=== PATIENT | female | born 1990 | race Caucasian/White ===

== ENCOUNTER 2017-10-10 23:22 | Inpatient (IN) | payer BC ==
[2017-10-11] MEDS ORDERED: Nalbuphine* 20 MG/ML 1 ML VIAL IM ONE (01:11)
[2017-10-11] MEDS ORDERED: Promethazine INJ(RESTRICTED)* 25 MG/ML 1 ML VIAL IM ONE (01:13)
[2017-10-11 09:39] LABS: ABS Basophils 0.1 10^3/ul (0-0.2); ABS Eosinophils 0 10^3/ul (0-0.6); ABS Lymphocytes 1.2 10^3/ul (1.0-4.8); ABS Monocytes 0.4 10^3/ul (0-0.8); ABS Neutrophils 8.6 10^3/ul (1.5-7.7); ABS Nucleated RBC 0 10^3/ul; Eosinophil % 0.3 % (0-6); Hematocrit 30 % (35-47); Hemoglobin 9.9 g/dl (12.0-16.0); Lymphocyte % 11.3 % (25-47); Mean Corpuscular HGB Conc 34 g/dl (31-36); Mean Corpuscular Hemoglobin 29 pg (27-31); Mean Corpuscular Volume 87 fL (80-97); Mean Platelet Volume 8 um3 (7.4-10.4); Nucleated Red Blood Cells % 0.1; Platelet Count 318 10^3/ul (150-450); Red Blood Count 3.39 10^6/ul (4.0-5.4); Red Cell Distribution Width 13 % (10.5-15); White Blood Count 10.3 10^3/ul (3.5-10.8)
[2017-10-11] MEDS ORDERED: OBEPIDURAL* 250 ML EPIDURAL ONE (13:37)
[2017-10-11] MEDS ORDERED: Famotidine TAB* 20 MG PO PRN (14:33)
[2017-10-11] MEDS ORDERED: EPHEDrine (Pressors)* 50 MG/ML VIAL IV PUSH PRN ×2 (14:33)
[2017-10-11] MEDS ORDERED: Phenylephrine IV* 40 MCG/ML 10 ML SYRINGE IV PUSH PRN ×2 (14:33)
[2017-10-11] MEDS ORDERED: Sodium Citrate/Citric Acid* 15 ML UDC PO PRN (14:33)
[2017-10-11] MEDS ORDERED: Ondansetron INJ* 2 MG/ML VIAL IV ONE (14:57)
[2017-10-11] MEDS ORDERED: OBEPIDURAL* 250 ML EPIDURAL SCH (15:00)
[2017-10-11] MEDS ORDERED: Oxytocin in LR* 20 UNITS/1,000 ML BAG IVPB ONE (18:37)
[2017-10-11] MEDS ORDERED: Oxytocin in LR* 20 UNITS/1,000 ML BAG IVPB SCH ×2 (19:00→22:25)
[2017-10-11] MEDS ORDERED: Ibuprofen TAB* 600 MG ONE (22:17)
[2017-10-11] MEDS ORDERED: Glycerin ADULT SUPP PR PRN (22:21)
[2017-10-11] MEDS ORDERED: Dibucaine 1% 28.35 GM TUBE PR PRN (22:21)
[2017-10-11] MEDS ORDERED: Witch Hazel PAD* JAR TOPICAL PRN (22:21)
[2017-10-11] MEDS ORDERED: Acetaminophen TAB* 325 MG PO PRN (22:21)
[2017-10-12 07:37] LABS: Hematocrit 25 % (35-47); Hemoglobin 8.4 g/dl (12.0-16.0); Mean Corpuscular HGB Conc 33 g/dl (31-36); Mean Corpuscular Hemoglobin 29 pg (27-31); Mean Corpuscular Volume 86 fL (80-97); Mean Platelet Volume 8 um3 (7.4-10.4); Platelet Count 298 10^3/ul (150-450); Red Blood Count 2.94 10^6/ul (4.0-5.4); Red Cell Distribution Width 13 % (10.5-15); White Blood Count 17.3 10^3/ul (3.5-10.8)
[2017-10-12] MEDS: Docusate CAP* 100 MG PO SCH ×3 (08:04→20:48)
[2017-10-12] MEDS: Ibuprofen TAB* 600 MG PO PRN ×3 (08:04→20:48)
[2017-10-12] MEDS: Ferrous Gluconate TAB* 324 MG TAB PO SCH ×2 (08:10→20:47)
--- NOTE | 2017-10-12 20:27 | PTEDU ---
Patient Name: LUIS STOLL LUIS STOLL selected video: Never Ever Shake a Baby to view on 10/12/2017 at 8:26:30 PM from [email or web address] [id number]
--- NOTE | 2017-10-12 20:36 | PTEDU ---
Patient Name: LUIS STOLL LUIS STOLL selected video: BBOB: Nurturing Your Gorgeous &Growing Baby by to view o n 10/12/2017 at 8:35:22 PM from [email or web address]
--- NOTE | 2017-10-12 21:18 | PTEDU ---
Patient Name: LUIS STOLL LUIS STOLL selected video: BBOB: Bonding Through Massage to view on 10/12/2017 at 9:17:52 PM from [id number]
[2017-10-13 08:27] VITALS: BP 122/77
[2017-10-13] MEDS: Ibuprofen TAB* 600 MG PO PRN (08:57)
[2017-10-13] MEDS: Ferrous Gluconate TAB* 324 MG TAB PO SCH (08:57)
[2017-10-13] MEDS: Docusate CAP* 100 MG PO SCH (08:57)
== END 2017-10-13 11:51 | disposition home or self-care (01) | DRG 560 ==
LOC: MCHOBOUT 23:22 → MCHOB 10-11 00:24
PROVIDERS: ADMIT Midwife; ATTEND Midwife
PROC: 10E0XZZ Delivery of Products of Conception, External Approach (ICD-10-PCS; principal; 2017-10-11)
PROC: 10907ZC Drainage of Amniotic Fluid, Therapeutic from Products of Conception, Via Natural or Artificial Opening (ICD-10-PCS; 2017-10-11)
PROC: 4A1HXCZ Monitoring of Products of Conception, Cardiac Rate, External Approach (ICD-10-PCS; 2017-10-11)
PROC: 0KQM0ZZ Repair Perineum Muscle, Open Approach (ICD-10-PCS; 2017-10-11)
DX: O69.1XX0 Labor and delivery complicated by cord around neck, with compression, not applicable or unspecified (principal); O42.12 Full-term premature rupture of membranes, onset of labor more than 24 hours following rupture; O69.2XX0 Labor and delivery complicated by other cord entanglement, with compression, not applicable or unspecified; Z3A.39 39 weeks gestation of pregnancy; Z37.0 Single live birth; Z87.442 Personal history of urinary calculi; O70.1 Second degree perineal laceration during delivery; O90.81 Anemia of the puerperium; R11.0 Nausea; O75.89 Other specified complications of labor and delivery
CPT/HCPCS: 36415; 84112; 85025; 85027; 86850; 86900; 86901; A9270-GY; J2300; J2405; J2550

== ENCOUNTER 2019-11-23 11:32 | Inpatient (IN) | payer BC ==
[2019-11-23] MEDS ORDERED: Buffered Lidocaine 1% SYRIN* 1 ML/SYRINGE INTRADERM ONE (12:42)
[2019-11-23] MEDS ORDERED: Lactated Ringers 1000 ML Bag* 1,000 ML IV ONE ×2 (12:42→18:14)
--- NOTE | 2019-11-23 12:49 | HP ---
General Information - Reason for Visit 29yo, , IUP@40+5 here for an IOL - General Information Maternal Age: 27 Grav: 1 Para: 0 SAB: 0 IEA: 0 Estimated Due Date: 10/12/17 Determined By: LMP Gestational Age in Weeks/Days: 40+5 Maternal Blood Type and Rh: O Positive - Results this Serology/RPR Result: Non-Reactive Rubella Result: Immune HBsAg Result: Negative HIV Result: Negative GBS Culture Result: Negative Past Medical History Delivery History: Hx Uncomplicated Vaginal Delivery Pertinent Past Medical History: See Records Past Medical History Comment: Ruptured ovarian cyst Anxiety Psoriasis Kidney stones Allergies Past Surgical History Comment: Cholecystectomy (2018) Family History Comment: Father: cardiac disease mother: CHF, diabetes PGM: [place] PGF: [place] MGM: alzheimer's MGF: lung cancer - Antepartal Records Antepartal Records: Reviewed, Complicated by: - hyperemesis, mild anemia Review of Systems Constitutional: Comfortable CV Complaint: No Respiratory: Shortness of Breath: No Gastrointestinal: No Nausea/Vomiting Genitourinary: No Dysuria, No Bleeding, No Leaking Fluid Musculoskeletal: No Complaint, No Epigastric Pain Neurological: No Headache Movement: Normal Exam Allergies/Adverse Reactions: Allergies MS Red Dye [Red Dye] Allergy (Verified 10/11/17 00:54) GI Upset temp 98.2, HR 89, RR 18, BP 123/73, O2 100% - Measurements Height: 5 ft 2 in Weight: 216 lb Body Mass Index (BMI): 39.4 Pre- Weight: 211 lb - Exam Breast: Breast Exam Deferred CVA: No CVA Tenderness Extremities: No Edema Heart: Normal Rhythm/Heart Sounds HEENT: No Significant Findings Lungs: Clear Bilaterally Rectal: Rectal Exam Deferred Reflexes: DTR 2+ Thyroid: No Thyromegaly - Abdominal Exam Abdomen Exam: Non-Tender - Ultrasound/Biophysical Profile Ultrasound Status: Not Done Targeted Exam Findings Estimated Weight: 8lb Cervical Exam: 2cm Effacement: 60% Station: -1 Presenting Part: Vertex Membrane Status: Intact Bleeding/Discharge: None EFM Findings - External Monitor Findings Baseline Heart Rate: 140 External Monitor Findings: Accelerations Present, No Pattern of Variable or Late Decelerations, Variability Moderate External Monitor Findings Comment: No evidence of metabolic acidemia Contractions: None Assessment/Plan - Assessment at 40+5 here for an IOL GBS negative, RI, O+ complicated by hyperemesis and anemia No evidence of metabolic acidemia Not in labor - Plan Plan: Admit - Anticipate Vaginal Delivery Plan Comment: PARQ discussion about AROM and start Pitocin. Pt and in agreement with plan. Pt to ambulate in halls, have lunch, then start induction. Anticipate progression to active labor and .
[2019-11-23] MEDS ORDERED: Lactated Ringers 1000 ML Bag* 1,000 ML IV SCH ×3 (13:00→23:00)
[2019-11-23] MEDS ORDERED: Oxytocin in LR* 20 UNITS/1,000 ML BAG IVPB SCH (13:00)
[2019-11-23 14:32] LABS: ABS Lymphocytes 1.6 10^3/ul (1.0-4.8); ABS Monocytes 0.3 10^3/ul (0-0.8); ABS Neutrophils 6.1 10^3/ul (1.5-7.7); Eosinophil % 0.6 %; Hematocrit 30 % (35-47); Hemoglobin 10.4 g/dL (12.0-16.0); Lymphocyte % 19.6 %; Mean Corpuscular HGB Conc 35 g/dL (31-36); Mean Corpuscular Hemoglobin 30 pg (27-31); Mean Corpuscular Volume 85 fL (80-97); Platelet Count 246 10^3/uL (150-450); Red Blood Count 3.52 10^6 /uL (3.70-4.87); Red Cell Distribution Width 14 % (10-15); White Blood Count 8.1 10^3/uL (3.5-10.8)
--- NOTE | 2019-11-23 14:42 | PN ---
Progress Note - Progress Note Date of Service: 11/23/19 Note: S: Pt is resting in bed. Ready for AROM. Denies feeling contractions. Active FM. O: FHR 130, moderate variability, +accels, no decels Contractions: q6mins, palpate mild VE: 3.5/60/-1, AROM, scant amount, clear fluid A: IUP@40+5 Not in active labor Cat I tracing - no evidence of metabolic acidemia Irregular contractions P: Titrate low dose pitocin as tolerated Anticipate progression to active labor and
[2019-11-23 15:59] LABS: Urine Benzodiazepine Screen None Detected (None Detect); Urine Opiates Screen None Detected (None Detect)
[2019-11-23] MEDS ORDERED: OBEPIDURAL* 250 ML EPIDURAL ONE (17:45)
[2019-11-23] MEDS ORDERED: Bupivacaine 0.25% SDV PF* 10 ML VIAL INJ ONE (17:52)
[2019-11-23] MEDS ORDERED: Sodium Citrate/Citric Acid* 15 ML UDC PO PRN (18:14)
[2019-11-23] MEDS ORDERED: Famotidine TAB* 20 MG PO PRN (18:14)
[2019-11-23] MEDS ORDERED: Phenylephrine 40 MCG/ML SYRINGE IV PUSH PRN ×2 (18:14)
[2019-11-23] MEDS ORDERED: OBEPIDURAL* 250 ML EPIDURAL SCH (19:00)
--- NOTE | 2019-11-23 20:04 | PN ---
Progress Note - Progress Note Date of Service: 11/23/19 Note: S: Pt is breathing through contractions. Very uncomfortable with contractions. Requesting an epidural. O: FHR 120, moderate variability, +accels, no decels Contractions: q2-3mins, palpate moderate VE: 4.5/70/-1, clear fluid Pit@4mU A: IUP@40+5 Not in active labor Cat I tracing - no evidence of metabolic acidemia Regular contractions P: Epidural now Anesthesia aware Anticipate progression to
--- NOTE | 2019-11-23 20:14 | PN ---
Progress Note - Progress Note Date of Service: 11/23/19 Note: Pt is comfortable with epidural Denies feeling pressure/urge to push Temp 97, afebrile Cat I FHR - no evidence of metabolic acidemia Contractions q2-4; Pitocin@8mU Titrate Pitocin as tolerated by mom and baby VE deferred as pt is ruptured; VE prn Anticipate progression to complete/complete and
[2019-11-23] MEDS ORDERED: Glycerin ADULT SUPP PR PRN (22:20)
[2019-11-23] MEDS ORDERED: Lidocaine 1% INJ* 10 MG/ML 30 ML SDV ONE (22:20)
--- NOTE | 2019-11-23 22:24 | PROCNOTE ---
[facility] OB: Delivery Note - Nursery Level of Nursery: Regular/Bedside - Perineum Perineal Injury: 1st Degree Perineal Repair: By Delivering Practioner - Events Delivery Events of Note: Pitocin During Labor - Additional Delivery Notes Additional Delivery Notes: Normal spontaneous vertex delivery of live male, Apgars 6/9. Delivered left occipital-anterior (MARA), with compound arm. Body delivered without difficulty. Baby placed on mothers abdomen. Cord clamped and cut by FOB after pulsations ceased. Pitocin given via IVPB for active management of 3rd stage. Placenta delivered spontaneously via [place], appears intact, 3vc. Perineum and vagina inspected - a first degree laceration noted. Repaired in the usual fashion, with CEI infusing, under 1% lidocaine. Anatomy restored; laceration hemostatic. EBL 400mL. Mom and baby stable at time of note. Baby attempting to breastfeed.
[2019-11-23] MEDS: Witch Hazel PAD* JAR TOPICAL PRN (23:29)
[2019-11-23] MEDS: Dibucaine 1% 28.35 GM TUBE PR PRN (23:29)
[2019-11-23] MEDS: Ibuprofen TAB* 600 MG PO SCH (23:29)
[2019-11-23] MEDS ORDERED: Ammonia Inhalant* 1 EA AMP ONE (23:53)
[2019-11-24] MEDS: Oxytocin in LR* 20 UNITS/1,000 ML BAG IVPB SCH ×2 (06:30→07:54)
[2019-11-24 06:41] LABS: ABS Lymphocytes 1.5 10^3/ul (1.0-4.8); ABS Monocytes 0.5 10^3/ul (0-0.8); ABS Neutrophils 9.9 10^3/ul (1.5-7.7); Eosinophil % 0.2 %; Hematocrit 25 % (35-47); Hemoglobin 8.7 g/dL (12.0-16.0); Lymphocyte % 12.9 %; Mean Corpuscular HGB Conc 34 g/dL (31-36); Mean Corpuscular Hemoglobin 29 pg (27-31); Mean Corpuscular Volume 85 fL (80-97); Mean Platelet Volume 8.7 fL (7.4-10.4); Platelet Count 231 10^3/uL (150-450); Red Blood Count 2.99 10^6 /uL (3.70-4.87); Red Cell Distribution Width 14 % (10-15)
[2019-11-24] MEDS ORDERED: Methylergonovine INJ* 0.2 MG/ML 1ML AMP ONE (07:11)
[2019-11-24] MEDS ORDERED: fentaNYL* 50 MCG/ML 2 ML VIAL (100 MCG VIAL) ONE (07:22)
[2019-11-24] MEDS ORDERED: Misoprostol TAB* 200 MCG ONE (07:54)
[2019-11-24] MEDS ORDERED: Methylergonovine INJ* 0.2 MG/ML 1ML AMP IM ONE (08:00)
[2019-11-24] MEDS ORDERED: fentaNYL* 50 MCG/ML 2 ML VIAL (100 MCG VIAL) IV SLOW PU ONE (08:12)
[2019-11-24] MEDS ORDERED: Ampicillin ADVAN(*) 2 GM in NS 0.9% 100 ML* 100 ML IVPB ONE (08:18)
[2019-11-24] MEDS ORDERED: Simethicone TAB* 80 MG TAB.CHEW PO SCH (08:30)
[2019-11-24] MEDS ORDERED: Misoprostol TAB* 100 MCG ONE (09:00)
[2019-11-24] MEDS: Ibuprofen TAB* 600 MG PO SCH ×3 (09:45→20:44)
[2019-11-24] MEDS: Ferrous Gluconate TAB* 324 MG TAB PO SCH ×2 (09:45→20:44)
[2019-11-24] MEDS: Docusate CAP* 100 MG PO SCH ×3 (09:45→20:44)
[2019-11-24 10:32] LABS: ABS Lymphocytes 1.5 10^3/ul (1.0-4.8); ABS Monocytes 0.5 10^3/ul (0-0.8); ABS Neutrophils 10.8 10^3/ul (1.5-7.7); Eosinophil % 0.2 %; Hematocrit 25 % (35-47); Hemoglobin 8.5 g/dL (12.0-16.0); Lymphocyte % 11.5 %; Mean Corpuscular HGB Conc 34 g/dL (31-36); Mean Corpuscular Hemoglobin 29 pg (27-31); Mean Corpuscular Volume 85 fL (80-97); Mean Platelet Volume 8.8 fL (7.4-10.4); Platelet Count 252 10^3/uL (150-450); Red Blood Count 2.98 10^6 /uL (3.70-4.87); Red Cell Distribution Width 14 % (10-15); White Blood Count 12.9 10^3/uL (3.5-10.8)
--- NOTE | 2019-11-24 20:15 | PN ---
Progress Note - Progress Note Date of Service: 11/24/19 Note: Called by RN, notified that pt had 2 large gushes of vaginal bleeding with clots. Bleeding reported as an ongoing trickle, assured pt stable. Instructed to resume pitocin and give methergine prn until provider arrival. On assessment , fundus was noted to be firm, but mildly tender to massage/palpation. Small amount of bleeding noted. VSS, pt alert and calm. Pitocin infusing, one dose of methergine given. Explained to pt need to do internal exam to determine source of bleeding. Pt in agreement with plan. Fentanyl, 50mcg was given via slow IVP. On exam lower uterine segment noted to be boggy. Several fist-size clots were removed. Lower uterine segment massaged until firm. Bleeding ceased. Plan for repeat CBC and single dose of ampicillin. EBL calculated to be 1200mL. Ang Faria MD notified and aware of pt status.
[2019-11-24] MEDS: Dibucaine 1% 28.35 GM TUBE PR PRN (20:46)
[2019-11-25 06:23] LABS: ABS Eosinophils 0.2 10^3/ul (0-0.6); ABS Lymphocytes 2.1 10^3/ul (1.0-4.8); ABS Monocytes 0.5 10^3/ul (0-0.8); ABS Neutrophils 6.8 10^3/ul (1.5-7.7); Hematocrit 20 % (35-47); Hemoglobin 6.7 g/dL (12.0-16.0); Lymphocyte % 21.8 %; Mean Corpuscular HGB Conc 34 g/dL (31-36); Mean Corpuscular Hemoglobin 30 pg (27-31); Mean Corpuscular Volume 86 fL (80-97); Mean Platelet Volume 8.1 fL (7.4-10.4); Nucleated Red Blood Cells % 0.1; Platelet Count 223 10^3/uL (150-450); Red Blood Count 2.29 10^6 /uL (3.70-4.87); Red Cell Distribution Width 14 % (10-15); White Blood Count 9.7 10^3/uL (3.5-10.8)
[2019-11-25] MEDS: Ibuprofen TAB* 600 MG PO SCH (06:23)
[2019-11-25] MEDS: Acetaminophen TAB* 325 MG PO PRN ×3 (08:22→22:10)
[2019-11-25] MEDS: Docusate CAP* 100 MG PO SCH ×3 (08:23→22:07)
[2019-11-25] MEDS: Ferrous Gluconate TAB* 324 MG TAB PO SCH ×2 (08:23→22:07)
--- NOTE | 2019-11-25 10:32 | PN ---
Progress Note - Progress Note Date of Service: 11/25/19 Note: Pt is S/P on 11/22 with hemorrhage <12 hours later. Total blood loss estimated to be >1000mL. H/H this morning is 6.7. On assessment, FF@U, scant lochia rubra. VSS - temp 98.2, BP 128/86, HR 80, RR 16. Pt asymptomatic - denies dizziness, weakness, SOB, difficulty ambulating. Voiding/stooling without difficulty. Breasts soft non-tender - baby breast feeding well. Recommend blood transfusion - 2 units of PRBC given hgb <7. PARQ discussion about blood transfusion with pt and . Educational handout given and consent signed. Pt and in agreement with plan. Repeat CBC 4 hours following transfusion. Ang Faria MD consulted, aware of pt status, and in agreement with plan.
[2019-11-25 20:23] LABS: ABS Eosinophils 0.2 10^3/ul (0-0.6); ABS Lymphocytes 2.1 10^3/ul (1.0-4.8); ABS Monocytes 0.6 10^3/ul (0-0.8); Hematocrit 26 % (35-47); Hemoglobin 8.8 g/dL (12.0-16.0); Lymphocyte % 18.9 %; Mean Corpuscular HGB Conc 34 g/dL (31-36); Mean Corpuscular Hemoglobin 29 pg (27-31); Mean Corpuscular Volume 87 fL (80-97); Mean Platelet Volume 8.5 fL (7.4-10.4); Platelet Count 264 10^3/uL (150-450); Red Blood Count 3.01 10^6 /uL (3.70-4.87); Red Cell Distribution Width 14 % (10-15); White Blood Count 10.9 10^3/uL (3.5-10.8)
[2019-11-26 07:33] VITALS: BP 110/65
[2019-11-26] MEDS: Ferrous Gluconate TAB* 324 MG TAB PO SCH (08:24)
[2019-11-26] MEDS: Docusate CAP* 100 MG PO SCH ×2 (08:24→12:58)
[2019-11-26] MEDS: Dibucaine 1% 28.35 GM TUBE PR PRN (16:20)
[2019-11-26] MEDS: Witch Hazel PAD* JAR TOPICAL PRN (16:20)
== END 2019-11-26 16:35 | disposition home or self-care (01) | DRG 560 ==
LOC: MCHOBOUT 11:32 → MCHOB 13:19
PROVIDERS: ADMIT Advanced Practice Midwife; ATTEND Advanced Practice Midwife
PROC: 10E0XZZ Delivery of Products of Conception, External Approach (ICD-10-PCS; principal; 2019-11-23)
PROC: 30233N1 Transfusion of Nonautologous Red Blood Cells into Peripheral Vein, Percutaneous Approach (ICD-10-PCS; 2019-11-23)
PROC: 10907ZC Drainage of Amniotic Fluid, Therapeutic from Products of Conception, Via Natural or Artificial Opening (ICD-10-PCS; 2019-11-23)
PROC: 3E033VJ Introduction of Other Hormone into Peripheral Vein, Percutaneous Approach (ICD-10-PCS; 2019-11-23)
PROC: 4A1HXCZ Monitoring of Products of Conception, Cardiac Rate, External Approach (ICD-10-PCS; 2019-11-23)
PROC: 0HQ9XZZ Repair Perineum Skin, External Approach (ICD-10-PCS; 2019-11-23)
DX: O48.0 Post-term pregnancy (principal); O72.1 Other immediate postpartum hemorrhage; Z37.0 Single live birth; D62 Acute posthemorrhagic anemia; O70.0 First degree perineal laceration during delivery; F32.9 Major depressive disorder, single episode, unspecified; F41.9 Anxiety disorder, unspecified; O99.344 Other mental disorders complicating childbirth; O99.03 Anemia complicating the puerperium; O32.6XX0 Maternal care for compound presentation, not applicable or unspecified; Z91.041 Radiographic dye allergy status; Z3A.40 40 weeks gestation of pregnancy
CPT/HCPCS: 36415; 80307; 85025; 86850; 86900; 86901; 86922; A9270-GY; G0480; J2210; J3010; J3490; P9040

== ENCOUNTER 2022-05-31 21:24 | Inpatient (IN) ==
[2022-05-31] MEDS ORDERED: Buffered Lidocaine 1% SYRIN 1 ml INTRADERM ONE (22:02)
[2022-05-31] MEDS ORDERED: Lactated Ringers 1000 ml BAG 1,000 ML IV ONE ×2 (22:02→23:41)
[2022-05-31 22:20] LABS: ABS Eosinophils 0.1 10^3/ul (0-0.6); ABS Lymphocytes 1.8 10^3/ul (1.0-4.8); ABS Monocytes 0.6 10^3/ul (0-0.8); ABS Neutrophils 6.8 10^3/ul (1.5-7.7); Eosinophil % 0.8 %; Hematocrit 29 % (35-47); Hemoglobin 9.8 g/dL (12.0-16.0); Lymphocyte % 19.8 %; Mean Corpuscular HGB Conc 34 g/dL (31-36); Mean Corpuscular Hemoglobin 29 pg (27-31); Mean Corpuscular Volume 87 fL (80-97); Mean Platelet Volume 8.5 fL (7.4-10.4); Platelet Count 286 10^3/uL (150-450); Red Blood Count 3.35 10^6 /uL (3.70-4.87); Red Cell Distribution Width 13 % (10-15); White Blood Count 9.3 10^3/uL (3.5-10.8)
[2022-05-31 22:40] LABS: Urine Benzodiazepine Screen None Detected (None Detect); Urine Cannabinoids Screen None Detected (None Detect); Urine Opiates Screen None Detected (None Detect)
[2022-05-31] MEDS ORDERED: OBEPIDURAL (200 ML) 200 ML EPIDURAL ONE (22:59)
[2022-05-31] MEDS ORDERED: Lidocaine 1.5% EPI 1:200,000 30 ML SDV ONE (23:00)
[2022-05-31] MEDS ORDERED: Lactated Ringers 1000 ml BAG 1,000 ML IV SCH ×3 (23:00→23:45)
[2022-05-31] MEDS ORDERED: Lactated Ringers 1000 ml BAG 500 ML IV PRN (23:41)
[2022-05-31] MEDS ORDERED: Phenylephrine 40 mcg/mL 10mL (400mcg) SYRINGE IV PUSH PRN ×2 (23:41)
[2022-05-31] MEDS ORDERED: Sodium Citrate/Citric Acid LIQ 15 ML UDC PO PRN (23:41)
[2022-05-31] MEDS ORDERED: OBEPIDURAL (200 ML) 200 ML EPIDURAL SCH (23:45)
[2022-06-01] MEDS ORDERED: Oxytocin in LR 20,000 MILLI.UNIT/1,000 ML BAG IV SCH ×2 (00:15→09:00)
[2022-06-01 00:33] LABS: Urine Appearance Clear; Urine Color Yellow
[2022-06-01 00:34] LABS: Urine Bilirubin Negative (Negative); Urine Blood 1+ (Small) (Negative); Urine Glucose Negative (Negative); Urine Ketones Negative (Negative); Urine Nitrite Negative (Negative); Urine Protein Negative (Negative); Urine Urobilinogen 0.2 (Negative) (Negative)
[2022-06-01 00:48] LABS: Urine Bacteria Absent (Absent); Urine Red Blood Cell 2+(6-10/hpf) (Absent); Urine Squamous Epithelial Cell Present (Absent); Urine White Blood Cell Trace(0-5/hpf) (Absent)
[2022-06-01] MEDS ORDERED: Ondansetron 4 mg VIAL 2 MG/ML 2 ml VIAL IV PRN (04:06)
[2022-06-01] MEDS ORDERED: Dibucaine 1% OINT 28.35 GM TUBE PR PRN (08:53)
[2022-06-01] MEDS ORDERED: Witch Hazel PAD JAR TOPICAL PRN (08:53)
[2022-06-01] MEDS ORDERED: Glycerin ADULT 2.4 gm SUPP PR PRN (08:53)
[2022-06-02 06:20] LABS: ABS Eosinophils 0.1 10^3/ul (0-0.6); ABS Lymphocytes 1.9 10^3/ul (1.0-4.8); ABS Monocytes 0.4 10^3/ul (0-0.8); ABS Neutrophils 7.3 10^3/ul (1.5-7.7); Eosinophil % 1.5 %; Hematocrit 24 % (35-47); Hemoglobin 7.9 g/dL (12.0-16.0); Mean Corpuscular HGB Conc 33 g/dL (31-36); Mean Corpuscular Hemoglobin 29 pg (27-31); Mean Corpuscular Volume 87 fL (80-97); Platelet Count 247 10^3/uL (150-450); Red Blood Count 2.76 10^6 /uL (3.70-4.87); Red Cell Distribution Width 13 % (10-15); White Blood Count 9.8 10^3/uL (3.5-10.8)
[2022-06-02 08:40] VITALS: BP 119/78
[2022-06-02] MEDS ORDERED: Iron Sucrose 200 MG in NS 0.9% 100 ml BAG 100 ML IVPB ONE (12:00)
== END 2022-06-02 14:57 | disposition home or self-care (01) | DRG 560 ==
LOC: MCHOBOUT 21:24 → MCHOB 21:55
PROVIDERS: ADMIT Midwife; ATTEND Midwife